=== PATIENT | male | born 1965 | race Two or more races ===

== ENCOUNTER → 2022-01-06 08:48 | Outpatient (BNVA) | payer OTHER, SELFPAY | PROVIDERS: PCP Internal Medicine; Visit Provider Nurse Practitioner Family | DX: G25.0 Essential tremor (principal) ==

== ENCOUNTER → 2023-01-01 09:26 | Outpatient (BNVA) | payer OTHER, SELFPAY | PROVIDERS: PCP Internal Medicine; Visit Provider Nurse Practitioner Family | DX: Z13.89 Encounter for screening for other disorder (principal) ==

== ENCOUNTER 2023-07-04 09:28 | Outpatient (AMB) | payer OTHER, SELFPAY ==
--- NOTE | 2023-07-04 09:32 | MHC.OFFVIS ---
Intake Vital Signs 07/04/23 09:34 Height 5 ft 9 in Weight 152 lb 2 oz BMI 22.5 BP 132/70 Blood Pressure Location Rt brachial Position Sitting Intake Visit Reasons: 6 mo follow up for tremors-Confirmed Intake Note: Patient presents for 6 month follow up. Patient states no issues or concerns. Allergies No Known Allergies Allergy (Verified 07/04/23 09:35) Medication List - Last Reconciled 07/04/23 by DANIEL Pride paroxetine HCl 60 mg (2 x 30 mg) PO DAILY 90 days primidone 50 mg PO BID 90 days quetiapine 25 mg PO BEDTIME 90 days tamsulosin 0.4 mg PO BEDTIME HPI HPI Comments History of Present Illness Details 57-yr-old male presents for f/u visit. Pt denies any significant interval medical changes. He is now seeing urology for prostate s/s. Pt continues to have life stress, his partner recently got a new puppy. He was able to travel to [place] recently with his mom. He is trying to keep himself busy- still doing some [employer]. He states memory is ok, but he does have to write things down or use his phone so he does not forget things. He is still seeing his therapist monthly. His tremor is stable, can be increased if anxious/stressed. [facility] Surgical History No history of previous surgery Family History Mother Lipid disorder Cancer Father No problems noted. Brother Lipid disorder Sister Lipid disorder Social History Household Members: Spouse Alcohol intake: never Patient Tobacco Use Status: Current someday Tobacco user Review of Systems Const All systems reviewed & are unremarkable except as noted in HPI and below Physical Exam Vital Signs: Last Vital Signs BP 132/70 07/04/23 09:34 BMI result Body Mass Index 22.5 Const General: cooperative and no acute distress Orientation/consciousness: patient oriented x3 HEENT Head: Yes normocephalic Resp Effort & Inspection: normal respiratory effort and able to speak in complete sentences Neuro Other: Mild intermittent head tremor BUE postural tremor General: patient oriented x3, gait normal and CN's II-XI intact bilaterally Cognition (Neuro): normal cognition Motor exam (neuro): 5/5 motor strength present throughout Psych Appearance: grossly normal Mental Status: mental status grossly normal Speech and movement: Clear speech present Affect: normal affect Attitude: cooperative Thought process: Normal thought process present Assessment & Plan Assessment & Plan (1) Essential tremor: Code(s): G25.0 - Essential tremor (2) JAMES (generalized anxiety disorder): Code(s): F41.1 - Generalized anxiety disorder Plan Continue primidone 50 mg twice a day. Continue Paxil 60mg qd. Continue quetiapine 25mg qhs. Concur with his increased activity regimen. f/u in 6 months or sooner prn. Medications: Refilled paroxetine HCl 60 mg (2 x 30 mg) PO DAILY 90 days 180 tabs 1RF primidone 50 mg PO BID 90 days 180 tabs 1RF quetiapine 25 mg PO BEDTIME 90 days 90 tabs 1RF Coding Level of Care Code Est Pt Level 4 (10445) Diagnoses Essential tremor G25.0 JAMES (generalized anxiety disorder) F41.1
[2023-07-04 09:34] VITALS: BP 132/70; BMI 22.5
== END 2023-07-04 10:30 | disposition home or self-care (01) ==
PROVIDERS: Visit Provider Nurse Practitioner Family
DX: G25.0 Essential tremor (principal); F41.1 Generalized anxiety disorder
CPT/HCPCS: 99214

== ENCOUNTER → 2023-07-04 09:28 | Outpatient (BNVA) | payer OTHER, SELFPAY | PROVIDERS: Visit Provider Nurse Practitioner Family ==

== ENCOUNTER 2024-01-02 11:21 | Outpatient (AMB) | payer OTHER, SELFPAY ==
[2024-01-02 11:24] VITALS: BP 130/78; PULSE 62; O2SAT 97; BMI 23.2
--- NOTE | 2024-01-02 11:24 | MHC.OFFVIS ---
Vital Signs 01/02/24 11:24 Height 5 ft 9 in Weight 157 lb BMI 23.2 BP 130/78 Blood Pressure Location Rt brachial Position Sitting Pulse 62 Pulse Source Pulse Oximeter Pulse Oximetry (%) 97 Oxygen Delivery Method Room Air Intake Visit Reasons: 6M follow up - confirmed Intake Note: Patient presents for 6 month follow up Allergies No Known Allergies Allergy (Verified 01/02/24 11:28) Medication List - Last Reconciled 01/02/24 by DANIEL Pride paroxetine HCl 60 mg (2 x 30 mg) PO DAILY 90 days primidone 50 mg PO BID 90 days quetiapine 25 mg PO BEDTIME 90 days tamsulosin 0.4 mg PO BEDTIME HPI Comments Details: 58-yr-old male presents for f/u visit. Pt denies any significant interval medical changes. However, he has had some recent dental work, which he notes was long over due d/t had fear of the dentist. Over multiple visits- had 4 teeth extractions, 2 crowns, cleaning, temporary partial dentures etc. He has had some oral discomfort from this- and is having to eat a very soft diet. He is being fitted w/ permanent partial denture soon. His tremor is stable. May notice more if anxious. He states his memory may be worse- he finds himself having to write everything down but may forget to go back and check his notes, needs to use a timer to stay on task. Notes today, that he was cleaning up the yard and when he came in, he saw he had 4 minutes left- so he started picking up little things to make the most of the 4 minutes. He is still trying to stay busy. He is still doing a lot of outdoor work and yard work. Still doing some work for his friends. The weather does not always cooperate. He has an upcoming trip to [place]- he is not excited about this- states there is too much to think about. And then has to balance this w/ family needs, his mother's birthday is coming up, and his friends/neighbor's needing his help. Has difficulty saying no to others. [facility] Surgical History No history of previous surgery Family History Mother Lipid disorder Cancer Father No problems noted. Brother Lipid disorder Sister Lipid disorder Social History Household Members: Spouse Alcohol intake: never Patient Tobacco Use Status: Current someday Tobacco user Review of Systems Const All systems reviewed & are unremarkable except as noted in HPI and below Physical Exam Vital Signs: Last Vital Signs Pulse 62 01/02/24 11:24 BP 130/78 01/02/24 11:24 Pulse Ox 97 01/02/24 11:24 Oxygen Delivery Method Room Air 01/02/24 11:24 BMI result Body Mass Index 23.2 Const General: cooperative and no acute distress Orientation/consciousness: patient oriented x3 HEENT Head: Yes normocephalic Resp Effort & Inspection: normal respiratory effort and able to speak in complete sentences Neuro Other: Mild intermittent head tremor BUE postural tremor Brennan tapping legs. General: patient oriented x3, gait normal and CN's II-XI intact bilaterally Cognition (Neuro): normal cognition Motor exam (neuro): 5/5 motor strength present throughout Psych Appearance: grossly normal Mental Status: mental status grossly normal Affect: normal affect Attitude: cooperative Thought process: Normal thought process present Thought content: Normal thought content present Assessment & Plan Assessment & Plan (1) Essential tremor: Code(s): G25.0 - Essential tremor Category: Medical (2) JAMES (generalized anxiety disorder): Code(s): F41.1 - Generalized anxiety disorder Category: Medical (3) Memory deficit: Code(s): R41.3 - Other amnesia Category: Medical Plan Continue primidone 50 mg twice a day. Continue Paxil 60mg qd. Continue quetiapine 25mg qhs. Concur with his increased activity regimen, though encouraged to pace these activities. f/u in 6 months or sooner prn. Medications: Refilled paroxetine HCl 60 mg (2 x 30 mg) PO DAILY 180 tabs 1RF 90 days primidone 50 mg PO BID 180 tabs 1RF 90 days quetiapine 25 mg PO BEDTIME 90 tabs 1RF 90 days Coding Level of Care Code Est Pt Level 4 (55061) Diagnoses Essential tremor G25.0 JAMES (generalized anxiety disorder) F41.1 Memory deficit R41.3
== END 2024-01-02 12:17 | disposition home or self-care (01) ==
PROVIDERS: PCP Internal Medicine; Visit Provider Nurse Practitioner Family
DX: G25.0 Essential tremor (principal); F41.1 Generalized anxiety disorder; R41.3 Other amnesia
CPT/HCPCS: 99214

== ENCOUNTER → 2024-01-02 11:21 | Outpatient (BNVA) | payer OTHER, SELFPAY | PROVIDERS: PCP Internal Medicine; Visit Provider Nurse Practitioner Family ==

== ENCOUNTER 2025-05-18 10:17 | Outpatient (AMB) | payer OTHER, SELFPAY ==
--- NOTE | 2025-05-18 10:30 | A.OFFVIS_ITS ---
Vital Signs 05/18/25 10:34 Weight 174 lb BP 100/70 Blood Pressure Location Rt brachial Position Sitting Pulse 55 Pulse Source Pulse Oximeter Pulse Oximetry (%) 100 Oxygen Delivery Method Room Air Intake Visit Reasons: 7 month Follow Up Intake Note: Patient presents for 6 month follow up Manager Tax Required: No Accompanied by: Self / Same As Patient Allergies No Known Allergies Allergy (Verified 05/18/25 10:36) Medication List - Last Reconciled 05/18/25 by DANIEL Pride paroxetine HCl 60 mg (2 x 30 mg) PO DAILY 90 days primidone 50 mg PO BID 90 days quetiapine 25 mg PO BEDTIME 90 days tamsulosin 0.4 mg PO BEDTIME HPI Comments Details: 59-yr-old male presents for f/u visit of tremor. Pt denies any significant interval medical history changes. However, he lost his 91-year-old mother just a few weeks ago. He reports he is happy that he was able to be there with her before she passed and be present for the services, and has been able to participate in most but not the last 2 days of the [employer] rituals- an evening Rosary and final Rosary and celebration- he plans to do these on his own as he is back home in [facility]. He states he is trying to cope and to learn to adjust to not being able to call and talk to her regularly. He notes that maybe he was abit too attached to her. He notes his mother was in her late 80s, after having a fall with a possible brain bleed, when she started having s/s dementia and AD with cognitive changes,/ sundowning, and aggressive behaviors. Pt reports that when he went to see his mother in her final days in [place], he forgot to take all of his medications with him. During this time, he notes that he was so busy that he only noticed he was missing his medicines at night, as he could not fall asleep due to thinking about everything that needed to be done. He states it was helpful when his partner was able to join him. His tremor is stable. May notice more if anxious. His memory is stable. He is still trying to stay busy. [facility] Surgical History No history of previous surgery Family History Mother Lipid disorder Cancer Father No problems noted. Brother Lipid disorder Sister Lipid disorder Social History Household Members: Spouse Alcohol intake: never Patient Tobacco Use Status: Current someday Tobacco user Review of Systems Const All systems reviewed & are unremarkable except as noted in HPI and below Physical Exam Vital Signs: Last Vital Signs Pulse 55 05/18/25 10:34 BP 100/70 05/18/25 10:34 Pulse Ox 100 05/18/25 10:34 Oxygen Delivery Method Room Air 05/18/25 10:34 Const General: cooperative and no acute distress Orientation/consciousness: patient oriented x3 HEENT Head: Yes normocephalic Resp Effort & Inspection: normal respiratory effort and able to speak in complete sentences Neuro Other: Mild intermittent head tremor BUE postural tremor, right slightly greater than left Mild RUE tightness BLE mild shaking movement, back and forth. General: patient oriented x3, gait normal and CN's II-XI intact bilaterally Cognition (Neuro): normal cognition Motor exam (neuro): 5/5 motor strength present throughout Psych Appearance: grossly normal Mental Status: mental status grossly normal Affect: normal affect Attitude: cooperative Thought process: Normal thought process present Thought content: Normal thought content present Assessment & Plan Assessment & Plan (1) Essential tremor: Code(s): G25.0 - Essential tremor Category: Medical (2) JAMES (generalized anxiety disorder): Code(s): F41.1 - Generalized anxiety disorder Category: Medical (3) Memory deficit: Code(s): R41.3 - Other amnesia Category: Medical Plan Tremor is a bit more prominent today, which may be secondary to increased stress and anxiety related to the recent loss of his mother, travel, and the need to complete the last 2 days of rituals to honor his mother in their baptism tradition. Continue primidone 50 mg twice a day. Continue Paxil 60mg qd. Continue quetiapine 25mg qhs. Continue to engage in regular physical and cognitive stimulating activities, though encouraged to pace these activities. Follow-up in 6 months or sooner prn. Medications: New cholecalciferol (vitamin D3) PO DAILY Refilled paroxetine HCl 60 mg (2 x 30 mg) PO DAILY 180 tabs 1RF 90 days primidone 50 mg PO BID 180 tabs 1RF 90 days quetiapine 25 mg PO BEDTIME 90 tabs 1RF 90 days Coding Level of Care Code Tele Est Pt Level 4 (14156) Diagnoses Essential tremor G25.0 JAMES (generalized anxiety disorder) F41.1 Memory deficit R41.3
[2025-05-18 10:34] VITALS: BP 100/70; PULSE 55; O2SAT 100
--- OUTSIDE RECORDS SUMMARY | 2025-05-18 13:03 | XMS_ITS | Clinical Summary ---
Author Organization [address] Address [address] [place] [address] Phone Care Team Providers Care Boom Boss Name Role Phone Josue Atwood MD Primary Care Provider [phone] Allergies No known active allergies Medications PARoxetine (PAXIL) 30 mg tablet 2 po qam 1 Active QUEtiapine (SEROquel) 25 mg tablet 1-2 po qhs prn anxiety or insomnia 1 Active primidone (MYSOLINE) 50 mg tablet Take 1 tablet (50 mg total) by mouth 2 (two) times a day. Active tamsulosin (FLOMAX) 0.4 mg 24 hr capsuleIndicatio ns:Benign prostatic hyperplasia without lower urinary tract symptoms TAKE 1 CAPSULE BY MOUTH ONCE DAILY. 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 (CMS/HCC V24) 03/24/2020 Adjustment disorder with mixed anxiety and depre ssed mood 04/16/2019 PTSD (post-traumatic stress disorder) 03/03/2015 BPH (benign prostatic hyperplasia) 06/16/2014 Essential tremor 06/16/2014 Vitamin D insufficiency 07/03/2012 Hematuria 07/03/2012 Overview (07/17/2024): Follows with urology Encounters Date Type Department Care Team Description 02/23/2025 8:45 AM EDT Office Visit Adult Medicine [address] [phone] Josue Atwood MD Adjustment disorder with mixed anxiety and depressed mood (Primary Dx); Essential tremor; Pre-diabetes; Benign prostatic hyperplasia, unspecified whether lower urinary tract symptoms present; Hypercholesteremia from Last 3 Months Immunizations Name Administration Dates Next Due Influenza Quadravalent, MDCK , 0.5ml, preservative free (Flucelvax) 6mo and older 07/03/2023,06/18/2020,07/13/2019 Influenza Quadravalent, MDCK , 0.5ml, with preservative (Flucelvax) 6mo and older 06/09/2018,06/24/2017 Influenza trivalent, 0.5mL, preservative free (Fluarix; FluLaval; Fluzone) ages 6mo and older (Afluria) 3 years and older 07/09/2016,07/22/2015,06/16/2014,2012,08/29/2012 Tdap Tetanus diptheria acell ular pertussis (Boostrix; Adacel) 7yo and older 07/03/2023,11/22/2012 Surgical History Surgery Date Site/Laterality Comments OTHER SURGICAL HISTORY PROCEDURE: DENIES PREVIOUS SURGERY COLONOSCOPY 08/26/2015 PROCEDURE: HISTORICAL COLONOSCOPY; COMMENT: mild diverticulosis, no polyps Medical History Medical History Date Comments Anxiety 06/12/2012 DX:Anxiety Tobacco abuse 06/12/2012 DX:Tobacco abuse Vitamin D insufficiency 07/03/2012 DX:Vitam in D insufficiency Hematuria 07/03/2012 DX:Hematuria Depression Enlarged prostate Family History Medical History Relation Name Comments Prostate cancer Father dx age 70's Other: leg infection Grandparent 1 Coronary artery disease Mother Breast cancer Other 1 Leukemia Uncle 1 Stroke Uncle 2 Relation Name Status Comments Father Grandparent 1 Grandparent 2 Mother Other 1 Other 2 Uncle 1 Uncle 2 Uncle 3 Social History Tobacco Use Types Packs/Day Years Used Date Smoking Tobacco: Every Day Cigarettes 0.5 43.7 Started: 09/03/1981 Smokeless Tobacco: Never Tobacco Cessation:Ready to Q uit: Not Asked; Counseling Given: Not Answered Alcohol Use Standard Drinks/Week Comments No 0 (1 standard drink = 0.6 oz pur e alcohol) Housing Instability Answer Date Recorde d Are you worried that in the next 2 months you may not have stable housing? No 08/20/2024 Food Access & Nutrition Answer Date Rec orded Do you have access to a vari ety of food including fruits and vegetables? Yes 08/20/2024 Access to Healthcare Answer Date Record ed Within the last 3 months, ho w many times did you visit the emergency department for your medical care? 0 08/20/2024 Health Literacy Answer Date Recorded How often do you need to hav e someone help you when you read instructions, pamphlets, or other written material from your doctor or pharmacy? Patient declined 08/20/2024 Caregiver: How often do you need to have someone help you when you read instructions, pamphlets, or other written material from your doctor or pharmacy? Not on file Financial Risk Answer Date Recorded How hard is it for you to pa y for the very basics like food, housing, medical care, and air conditioning / heating? Unable to respond 08/20/2024 Transportation Answer Date Recorded Has the lack of transportati on kept you from meetings, work, or from getting things needed for daily living? No Has the lack of transportati on kept you from medical appointments or from getting medications? No 08/20/2024 Social Isolation Answer Date Recorded How often do you feel lonely or isolated from those around you? Patient declined 08/20/2024 Food Risk Answer Date Recorded Within the past 12 months we worried whether our food would run out before we got money to buy more. Patient declined Within the past 12 months th e food we bought just didn't last and we didn't have money to get more. Patient declined 08/03 Dependent Care Answer Date Recorded Do you need help finding or paying for care for your loved ones. For example, childcare teacher or elderly care for an older adult? No 08/20/2024 Education Answer Date Recorded Do you think completing more education or training, like finishing a GED, going to college, or learning a trade, would be helpful for you? Patient declined 08/20/2024 Employment and Income Answer Date Recor ded During the last four weeks, have you been actively looking for work? Patient declined 08/20/2024 Living Situation Answer Date Recorded What is your living situation? 1 10/21/2023 Interpersonal Safety Answer Date Record ed Physical Abuse 01/06/2025 Verbal Abuse 01/06/2025 Sex and Gender Information Value Date Recorded Sex Assigned at Not on file Legal Sex Male 5:46 AM EST Gender Identity Not on file Sexual Orientation Not on file Obstetrics History Last Filed Vital Signs Vital Sign Reading Time Taken Comments Blood Pressure 106/56 02/23/2025 8:31 AM EDT Pulse 67 02/23/2025 8:31 AM EDT Temperature 36.2 C (97.1 F) 02/23/2025 8:31 AM EDT Respiratory Rate 20 02/23/2025 8:31 AM EDT Oxygen Saturation 100% 01/06/2025 9:29 AM EDT Inhaled Oxygen Concentration - - Weight 71.7 kg (158 lb) 02/23/2025 8:31 AM EDT Height 175.3 cm (5' 9 ) 02/23/2025 8:31 AM EDT Body Mass Index 23.33 02/23/2025 8:31 AM EDT Plan of Treatment Upcoming Encounters Date Type Department Care Team (Late st Contact Info) Description 08/13/2025 8:30 AM EST Office Visit Adult Medicine [facility] [address], [place] [phone] Kiki Su NP [address], [place] Health Maintenance Due Date Last Done Comments Pneumococcal Vaccine: 50+ Years (1 of 2 - PCV) 12/17/1982 Zoster Vaccines (1 of 2) 12/17/2013 HIV Screening 08/12/2022 Lung Cancer Screening (Low Dose CT) 08/12/2022 Influenza Vaccine (#1) 2025 , 07/03/2023, 06/11/2022, Additional history exists Social Influencers of Health Screening 08/20/2025 08/20/2024 Cholesterol Screening (Lipid Panel) 08/14/2029 08/14/2024, 07/17/2023 DTaP,Tdap,and Td Vaccines (3 - Td or Tdap) 07/03/2033 07/03/2023, 11/22/2012 Colorectal Cancer Screening: Colonoscopy 01/06/2035 01/06/2025, 08/26/2015 RSV Immunization Adult Patients (1 - 1-dose 75+ series) 12/17/2038 Hepatitis C Screening Completed 06/29/2012 COVID-19 Vaccine Completed 07/03/2024, 05/2022, 08/15/2021, Additional history exists Depression Screening Completed 02/20/2025 HIB Vaccines Aged Out No longer eligi ble based on patient's age to complete this topic HPV Vaccines Aged Out No longer eligi ble based on patient's age to complete this topic Hepatitis A Vaccines Aged Out No long er eligible based on patient's age to complete this topic Hepatitis B Vaccines Aged Out No long er eligible based on patient's age to complete this topic IPV Vaccines Aged Out No longer eligi ble based on patient's age to complete this topic MMR Vaccines Aged Out No longer eligi ble based on patient's age to complete this topic Meningococcal ACWY Vaccine Aged Out N o longer eligible based on patient's age to complete this topic Meningococcal B Vaccine Aged Out No l onger eligible based on patient's age to complete this topic RSV Immunization Patients Under 20 months Aged Out No longer eligible based on patient's age to complete this topic Varicella Vaccines Aged Out No longer eligible based on patient's age to complete this topic Procedures Procedure Name Priority Date/Time Associated Diagnosis Comments COLONOSCOPY Routine 01/06/2025 9:08 AM EDT Colon cancer screening LIPID PANEL WITH REFLEX TO DIRECT LDL Routine 08/14/2024 9:43 AM EST Benign enlargement of prostate Family history of malignant neoplasm of prostate Prediabetes Routine general medical examination at a health care facility HM HEPATITIS C SCREENING Routine 06/29/2012 from Last 3 Months or Most Recently Relevant to Health Maintenance Results * COLONOSCOPY Anesthesia - MAC; SP ENDOSCOPY (01/06/2025 9:08 AM EDT) Anatomical Region Laterality Modality Endoscopy 01/06/2025 8:57 AM EDT Impressions 01/06/2025 9:10 AM EDT - The entire examined colon is normal on direct and retroflexion views. - No specimens collected. Recommendation: - Discharge patient to home. - Repeat colonoscopy in 10 years for screening purposes. Narrative 01/06/2025 9:10 AM EDT [facility] Patient Name: Carter Ozuna Procedure Date: 01/06/2025 8:57 AM Date of : 1965 Age: 59 Gender: Male Note Status: Finalized Attending MD: Enrique Orozco MD, Procedure Date No Time: 01/06/2025 Procedure: Colonoscopy Indications: Screening for colorectal malignant neoplasm Providers: Enrique Orozco MD Referring MD: Enrique Orozco MD Medicines: Monitored Anesthesia Care Complications: No immediate complications. Estimated Blood Loss: Estimated blood loss: none. Procedure: Pre-Anesthesia Assessment: - Prior to the procedure, a History and Physical was performed, and patient medications and allergies were reviewed. The patient is competent. The risks and benefits of the procedure and the sedation options and risks were discussed with the patient. All questions were answered and informed consent was obtained. Patient identification and proposed procedure were verified by the physician, the nurse, the site safety coordinator and the system support technician in the pre-procedure area in the endoscopy suite. Mental Status Examination: alert and oriented. Airway Examination: normal oropharyngeal airway and neck mobility. Respiratory Examination: clear to auscultation. CV Examination: normal. Prophylactic Antibiotics: The patient does not require prophylactic antibiotics. Prior Anticoagulants: The patient has taken no anticoagulant or antiplatelet agents. ASA Grade Assessment: II - A patient with mild systemic disease. After reviewing the risks and benefits, the patient was deemed in satisfactory condition to undergo the procedure. The anesthesia plan was to use monitored anesthesia care (MAC). Immediately prior to administration of medications, the patient was re-assessed for adequacy to receive sedatives. The heart rate, respiratory rate, oxygen saturations, blood pressure, adequacy of pulmonary ventilation, and response to care were monitored throughout the procedure. The physical status of the patient was re-assessed after the procedure. After I obtained informed consent, the scope was passed under direct vision. Throughout the procedure, the patient's blood pressure, pulse, and oxygen saturations were monitored continuously. The Colonoscope was introduced through the anus and advanced to the cecum, identified by appendiceal orifice and ileocecal valve. The colonoscopy was performed without difficulty. The patient tolerated the procedure well. The quality of the bowel preparation was good. Findings: The perianal and digital rectal examinations were normal. The entire examined colon appeared normal on direct and retroflexion views. Procedure Code(s): --- Professional --- G0121, Colorectal cancer screening; colonoscopy on individual not meeting criteria for high risk Diagnosis Code(s): --- Professional --- Z12.11, Encounter for screening for malignant neoplasm of colon CPT copyright 2020 [employer]. All rights reserved. The codes documented in this report are preliminary and upon auxiliary engineer review may be revised to meet current compliance requirements. Enrique Orozco MD 01/06/2025 9:10:05 AM This report has been signed electronically.Enrique Orozco MD Number of Addenda: 0 Note Initiated On: 01/06/2025 8:57 AM Scope Withdrawal Time: 0 hours 6 minutes 30 seconds Scope In: 9:01:49 AM Scope Out: 9:09:53 AM Endoscopy Department at [facility] - [address] [place] [id number] Procedure Note Enrique Orozco MD - 01/06/2025 [facility] GI Patient Name: Carter Ozuna Procedure Date: 01/06/2025 8:57 AM Date of : 1965 Age: 59 Gender: Male Note Status: Finalized Attending MD: Enrique Orozco MD, Procedure Date No Time: 01/06/2025 Procedure: Colonoscopy Indications: Screening for colorectal malignant neoplasm Providers: Enrique Orozco MD Referring MD: Enrique Orozco MD Medicines: Monitored Anesthesia Care Complications: No immediate complications. Estimated Blood Loss: Estimated blood loss: none. Procedure: Pre-Anesthesia Assessment: - Prior to the procedure, a History and Physicalwas performed, and patient medications and allergieswere reviewed. The patient is competent. The risks and benefits of the procedure and the sedation optionsand risks were discussed with the patient. Allquestions were answered and informed consent was obtained. Patient identification and proposed procedure were verified by the physician, the nurse, theanesthetist and the system support technician in the pre-procedure area in the endoscopy suite. Mental Status Examination: alertand oriented. Airway Examination: normal oropharyngeal airway and neck mobility. Respiratory Examination: clear to auscultation. CV Examination: normal. Prophylactic Antibiotics: The patient does notrequire prophylactic antibiotics. Prior Anticoagulants: The patient has taken no anticoagulant or antiplatelet agents. ASA Grade Assessment: II - A patient withmild systemic disease. After reviewing the risks and benefits, the patient was deemed in satisfactory condition to undergo the procedure. The anesthesia plan was to use monitored anesthesia care (MAC). Immediately prior to administration of medications, the patient was re-assessed for adequacy to receive sedatives. The heart rate, respiratory rate, oxygen saturations, blood pressure, adequacy of pulmonary ventilation, and response to care were monitored throughout the procedure. The physical status ofthe patient was re-assessed after the procedure. After I obtained informed consent, the scope was passed under direct vision. Throughout theprocedure, the patient's blood pressure, pulse, and oxygen saturations were monitored continuously. The Colonoscope was introduced through the anus and advanced to the cecum, identified by appendiceal orifice and ileocecal valve. The colonoscopy was performed without difficulty. The patient tolerated the procedure well. The quality of the bowel preparation was good. Findings: The perianal and digital rectal examinations were normal. The entire examined colon appeared normal on direct and retroflexion views. Procedure Code(s): --- Professional --- G0121, Colorectal cancer screening; colonoscopy on individual not meeting criteria for high risk Diagnosis Code(s): --- Professional --- Z12.11, Encounter for screening for malignantneoplasm of colon CPT copyright 2020 [employer]. All rights reserved. The codes documented in this report are preliminary and upon auxiliary engineer reviewmay be revised to meet current compliance requirements. Enrique Orozco MD 01/06/2025 9:10:05 AM This report has been signed electronically.Enrique Orozco MD Number of Addenda: 0 Note Initiated On: 01/06/2025 8:57 AM Scope Withdrawal Time: 0 hours 6 minutes 30 seconds Scope In: 9:01:49 AM Scope Out: 9:09:53 AM Endoscopy Department at [facility] - [address] [place] [phone] IMPRESSION: - The entire examined colon is normal on direct and retroflexion views. - No specimens collected. Recommendation: - Discharge patient to home. - Repeat colonoscopy in 10 years for screening purposes. us Enrique Orozco MD GI~PROCEDURE ORDERABLES Fin al Result * (ABNORMAL) Lipid panel with reflex to direct LDL (08/14/2024 9:43 AM EST) Cholesterol 228(H) 0 - 200 mg/dL LAB CHEMISTRY METHOD 08/14/2024 1:01 PM EST [facility] Triglycerides 113 0 - 150 mg/dL LAB CHEMISTRY METHOD 08/14/2024 1:01 PM EST [facility] HDL 68 >=40 mg/dL LAB CHEMISTRY METHOD 08/14/2024 1:01 PM EST [facility] LDL Calculated 137(H) 0 - 100 mg/dL LAB CHEMISTRY METHOD 08/14/2024 1:01 PM EST [facility] VLDL Cholesterol Jimenez 22.6 mg/dL LAB CHEMISTRY METHOD 08/14/2024 1:01 PM EST [facility] Non HDL Chol. (LDL+VLDL) 160(H) <145 mg/dL LAB CHEMISTRY METHOD 08/14/2024 1:01 PM EST [facility] Chol/HDL Ratio 3.4 0.0 - 4.4 LAB CHEMISTRY METHOD 08/14/2024 1:01 PM EST [facility] Blood Venous blood specimen / Unknown Venipuncture / Unknown 08/14/2024 9:43 AM EST 08/14/2024 9:43 AM EST us Josue Atwood MD LAB BLOOD ORDERABLES Final Resul t [facility] [address] [place] [address], * Hepatitis C Screening (06/29/2012) Hepatitis C Screening abstracted us Historical Provider HEALTH MAINTENANCE Final Result from Last 3 Months or Most Recently Relevant to Health Maintenance Insurance [facility] Care Teams Boom Boss Relationship Specialty Start Date End Date Josue Atwood MD [address] [place] [id number] PCP - General 07/03/1999
== END 2025-05-18 11:29 | disposition home or self-care (01) ==
LOC: HO.HSMS 10:17
PROVIDERS: PCP Internal Medicine; Visit Provider Nurse Practitioner Family
DX: G25.0 Essential tremor (principal); F41.1 Generalized anxiety disorder; R41.3 Other amnesia
CPT/HCPCS: 99214